=== PATIENT | male | born 1955 | race Caucasian/White ===

== ENCOUNTER 2025-08-14 08:21 | Day surgery (SDC) | payer MEDICARE, SELFPAY ==
[2025-08-14] VITALS (11 sets, daily range): BP systolic 123–152; BP diastolic 69–81; PULSE 71–86; RESP 16–20; TEMP 36.1–36.6; O2SAT 93–100; BMI 26.5
--- NOTE | 2025-08-14 07:33 | HP.PCM_ITS ---
History and Physical Date of Admission: 08/14/25 Date of Service: 07/18/25 MR#: [id number] Acct: [id number] Name: RICCI REICH Rep #: [id number] : 1955 Provider: Dr. Avani Dangelo MD Age/Sex: 70/M Location: [facility] Status: Signed Intake Vital Signs 07/18/2509:05 Height 5 ft 10 in Weight: 185 lb 8 oz BMI 26.6 BP 137/88 H Blood Pressure Location Rt brachial Position Sitting Respiration 17 Pulse 79 Pulse Source Monitor Temp 97.2 F L Temp Source Temporal Pulse Oximetry (%) 99 Oxygen Delivery Method room air Intake Visit Reasons: INGUINAl HERNIA Chief Complaint: right inguinal hernia Accompanied by: Is patient in pain?: No Allergies No Known Allergies Allergy (Unverified 07/18/25 09:06) Medications Medication Instructions Recorded Confirmed Type ascorbate calcium (vitamin C) 500 500 mg PO QDAY 07/18/25 07/18/25 History mg tablet latanoprost 0.005 % eye drops 1 drp ophthalmic (eye) QDAY 07/18/25 History pediatric multivitamin no.19-folic tab PO 07/18/25 07/18/25 History acid 200 mcg chewable tablet (Flintstones Multi-Vitamins Gummies) Have you fallen in the past year?: No PFSH Medical History (Updated 07/18/25 @ 09:05 by Berta Philippe LPN) Right inguinal hernia Surgical History (Updated 07/18/25 @ 09:05 by Berta Philippe LPN) H/O hand surgery H/O cataract extraction Social History (Updated 07/18/25 @ 09:05 by Berta Philippe LPN) Smoking Status: Never smoker alcohol intake: current substance use type: does not use HPI HPI HPI: 70-year-old male presents with his due to right inguinal hernia. Patient states he noticed this in mid April. Patient does notice a bulge does reduce but comes right back out. Patient does have small amount of discomfort with this and is very interested in having it repaired prior to flu season. ROS General General: No weight change, appetite, fatigue, colon cancer, breast cancer or weakness HEENT HEENT: Yes eye surgery; No difficulty swallowing, eye injury, swollen glands or hoarseness Additional Details: bilateral cataracts Endo Endocrine: No thyroid disease, diabetes mellitus, thyroid cancer, Hair loss, heat intolerance or cold intolerance Skin Skin: No rash or changing moles Musc Musculoskeletal: No back problems, arthritis, rheumatoid arthritis, gout or joint pain Cardio Cardiovascular: No murmur, pacemaker, heart disease, atrial fibrillation, high blood pressure, heart attack, heart stent, palpitations, shortness of breath with exertion or chest pain Psych Psychiatric: No depression, anxiety or hearing voices Resp Respiratory: No shortness of breath, No sleep apnea, No cough, No COPD, No asthma, No emphysema and No wheezing Gastro Gastrointestinal: No abdominal pain, No nausea or vomiting, No diarrhea, No constipation, No blood in stool, No acid reflux, No hemorrhoids, No ulcers, No gallbladder problem and No black,tarry stools Serjio Hematologic: No blood thinners, No blood disorders, No bleeding, No anemia and No blood clots Neuro Neurologic: No numbness, No tingling and No weakness Exam Const General: cooperative, healthy appearing, comfortable and no acute distress [facility] Head: normocephalic and atraumatic Neck Neck: supple Resp Effort & Inspection: normal respiratory effort Cardio Rate: regular rate GI Inspection: non-distended Palpation: soft, hernia (Right inguinal likely direct-reducible) and nontender Skin General: no rashes or lesions noted Neuro General: CN's II-XI intact bilaterally Extrem General: normal to inspection Psych Mental Status: mental status grossly normal Attitude: cooperative Assessment and Plan Assessment and Plan (1) Right inguinal hernia: Status: Acute Plan Plan to do a robotic right inguinal hernia with mesh, possible bilateral. Reviewed the procedure with the patient including the risks, including but not limited to infection, bleeding, paresthesia, chronic pain, injury to small bowel or contents of the spermatic cord, and recurrence. All questions were answered. Avani Dangelo M.D. Pager: [phone] [facility] [address] [place] [address], [address] [place] [id number] Office: [phone] Coding Level of Care Code Off vis,new,level 3 Diagnoses Right inguinal hernia K40.90 Clinical Quality Measures Falls Risk Screening/Assistive Devices Have you fallen in the past year?: No 07/18/25918 <Electronically signed by Avani Dangelo MD> Date Avani Dangelo MD
--- NOTE | 2025-08-14 08:42 | EKG12_ITS ---
Test Reason : PREOP Blood Pressure : */* mmHG Vent. Rate : 85 BPM Atrial Rate : 85 BPM P-R Int : 180 ms QRS Dur : 82 ms QT Int : 388 ms P-R-T Axes : 71 -57 43 degrees QTcB Int : 461 ms Normal sinus rhythm Left axis deviation Abnormal ECG No previous ECGs available Confirmed by CAROL DONAHUE, ARNAV ([id number]), loan expeditor ANGELINE GARCIA ([id number]) on 08/18/2025 9:45:18 AM Referred By: Avani Dangelo Confirmed By: ARNAV MEDINA MD
[2025-08-14] MEDS: Lactated Ringers 1,000 ML 15 ML IV (09:31)
--- NOTE | 2025-08-14 09:46 | PRE.ANES_ITS ---
ASA Classification* ASA Classification ASA Classification: 2 Assessment & Plan Anesthesia* Anesthesia Assessment Anesthesia Assessment: Discussed sedation and/or anesthesia options, risks, benefits, and alternatives with patient/parents/legal guardian/POA. Questions invited. The patient/parents/legal guardian/POA seems to understand and agrees to proceed with anesthesia plan. Reviewed the physical assessment, medical history, allergy history and patient home medications list prior to surgery/procedure/anesthetic and documented any changes. Performed airway and anesthesia risk assessments. Anesthesia Type Anesthesia Type: General History Source History Obtained from:: Patient and Chart Anesthesia Focused Assessment* Temperature: 97.8 F Pulse Rate: 84 Blood Pressure: 152/76 Respiratory Rate: 18 Pulse Ox: 100 Oxygen Delivery Method: Room Air Airway Assessment Mouth opens: >3 cm Mallampati Score: I Teeth Condition: Missing (Patient is missing several teeth. Rest are tight.) Neck Range of motion (ROM): Full ROM Labs Anesthesia Preop lab: CBC CHEMISTRY COAG Pre-Assessment Diagnosis/Proposed Procedure Planned Operative Procedure(s): LAP ROBOTIC RIH WITH MESH POSS BILAT Anesthesia History Anesthesia History - medical records technician: Anesthesia History - medical records technician Hx Hospitalization No 08/04/25 13:04 Any Problems With Anesthesia No 08/04/25 13:04 Cholinesterase deficiency No 08/04/25 13:04 You/Your Family Experience No 08/04/25 13:04 fever (hyperthermia) with Relationship Recent Exposure to Contagious No 08/14/25 09:28 Disease Does patient have nerve No 08/04/25 13:04 stimulator Patient instructed to have device shut off --Does patient have Pacemaker No 08/14/25 09:28 or ICD? When Was Last Pacemaker Check QUESTION #4 FULL TEXT: You/Your Family Experience fever (hyperthermia) with Anesthesia Last Oral Intake Last Oral intake: Last Oral Intake NPO since 18:00 08/14/25 09:28 Meds taken in AM with sips of No 08/14/25 09:28 water? Meds patient instructed to take am of surgery PONV PONV - medical records technician: PONV - medical records technician Female No 08/04/25 13:04 HX of Motion Sickness No 08/04/25 13:04 HX of N/V After Surgery No 08/04/25 13:04 Non-Smoker Yes 08/04/25 13:04 Duration of Surgery greater Yes 08/04/25 13:04 than 60 minutes Number of Risk Factors 2 08/04/25 13:04 PONV Score Moderate Risk 08/04/25 13:04 Height & Weight Height & Weight: Anesthesia: Height & Weight Height 5 ft 10 in 08/14/25 09:28 Weight: 84 kg 08/14/25 09:28 Body Mass Index (BMI) 26.5 08/14/25 09:28 Respiratory Assessment Respiratory Assessment - medical records technician: Respiratory Tract Infection Hx - medical records technician Hx Respiratory Tract Infection No 08/04/25 13:04 STOP Sleep Apnea STOP Sleep Apnea - medical records technician: STOP Sleep Apnea - medical records technician Hx Hypertension No 08/04/25 13:04 Hx Sleep Apnea No 08/04/25 13:04 CPAP BIPAP Do you snore loudly (louder Yes 08/04/25 13:04 than talking or can be heard Do you often feel tired/ No 08/04/25 13:04 fatigued/ sleepy during daytime? Has anyone observed you stop No 08/04/25 13:04 breathing during sleep? STOP Results Negative 08/04/25 13:04 QUESTION #5 FULL TEXT : Do you snore loudly (louder than talking or can be heard through closed doors)? 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 Specify any problems Hx of Preganancy in last 3 N/A 08/04/25 13:04 Months Nurse Filling Out Transfusion [email or web address] 08/04/25 13:04 & Questions: Date: 08/04/25 08/04/25 13:04 Time: 13:05 08/04/25 13:04 Patient unable to answer at this time (ie. confused, unrespo /Reproduction History /Reproductive History - medical records technician: /Reproductive Hx- medical records technician Hx Now No 08/04/25 13:04 Gestational Age (in weeks): EDC: Hx Hx Para Hx Section SAB No 08/04/25 13:04 Does the father of the baby or his family experience fever w Father of the baby Malignant Hypertension history comment Active Medications Active Medications: Current Medications Generic Name Dose Route Start Last Admin Trade Name Freq PRN Reason Stop Dose Admin Lactated Ringer's 1,000 mls @ 15 mls/hr 08/14/25 09:00 08/14/25 09:31 IV 15 mls/hr .Q48H MARY Administration PFSH Medical History Wears hearing aid Wears glasses Restless legs Shortness of breath on exertion Non-smoker History of edema Right inguinal hernia Home Medications Medication Instructions Recorded Last Taken Type ascorbate calcium (vitamin C) 500 500 mg PO QDAY 07/18 Unknown History mg tablet latanoprost 0.005 % eye drops 1 drp ophthalmic (eye) Q DAY 07/18/25 Unknown History pediatric multivitamin no.19-folic 1 tab PO DAILY 07/02 04/25 Unknown History acid 200 mcg chewable tablet (Flintstones Multi-Vitamins Gummies) Allergy/AdvReac Type Severity Reaction Status Date / Time No Known Allergies Allergy Verified 08/14/25 09:28 Surgical History Hx of colonoscopy H/O hand surgery H/O cataract extraction Social History Smoking Status: Never smoker alcohol intake: current substance use type: does not use Review of Systems (Anesthesia) ROS Narrative System reviewed and no additional complaints, except as documented.
[2025-08-14] MEDS: Lactated Ringers 1,000 ML 1000 ML IV (11:42)
[2025-08-14] MEDS: Cefazolin 1 GM/5 ML Vial 2 GM IV (11:43)
[2025-08-14] MEDS: Lidocaine 1% (5 ml sdv) 5 ML Vial IV (11:47)
--- NOTE | 2025-08-14 12:42 | PCM.OPRPT ---
Operative Report (Standard) Operative Information Date of Procedure: 08/14/25 Pre-Operative Diagnosis: Right direct inguinal hernia Post-Operative Diagnosis: Right indirect and direct inguinal hernia Surgery/Procedure Performed: Robotic inguinal hernia repair with mesh section forest fire warden: Yes Environmental Control Administrator: Bridgette Wilson Tasks completed by assistant to the president: Opening & closing Type of Anesthesia: General/Supplemental RN Documented Start/Stop Times: Operation Date: 08/14/25 10:15 Case Time Into Pre-Op 08/14/25 08:45 Anesthesia Start 08/14/25 11:42 Into Room 08/14/25 11:42 Procedure Start 08/14/25 12:01 Procedure End 08/14/25 12:51 Anesthesia End 08/14/25 12:56 Out of Room 08/14/25 12:56 Into Recovery 08/14/25 12:58 Procedure Start Time: 12:01 Procedure Stop Time: 12:51 Select all DRAINS/GRAFTS/IMPLANTS that apply: Prosthetic device Prosthetic device details: Appropriate mesh Lot [id number] Special Medications: Ancef 2 g IV x 1 Estimated Blood Loss: <10 cc Specimen collected: No Description of surgery: Indications: 70-year-old male presented with right inguinal hernia which was symptomatic. Robotic right inguinal hernia repair with mesh was elected patient was agreeable. Description of procedure: Patient was brought to operating room placed supine operative table. Timeout was completed verifying correct patient, procedure, site, positioning, special, prior to beginning procedure. General anesthesia was induced. Patient's arms were tucked and padded appropriately. Visiport was used to make the incision at Santana's point in the left upper quadrant. Entry into the abdomen was confirmed visually. Laparoscope was placed. Verifying no injury during initial trocar placement. Patient was placed in Trendelenburg position. Two 8 mm trochars were placed along the horizontal line in the midline and in the right upper quadrant. The initial 5 mm trocar was upsized to an 8 mm well under direct visualization. Both the inguinal regions were inspected and right indirect and direct, left no hernia. Robot was docked. The median umbilical ligament was divided sharply with electrocautery. Peritoneum was incised with the endoscopic scissors along a line 2 cm above the superior edge of the hernia defect extending from the median umbilical ligament to anterior superior iliac spine. Peritoneal flap was mobilized inferiorly using blunt and sharp dissection. The left direct and indirect hernia sac was inverted and dissected. Cord structures were visualized and protected. The inferior epigastric vessels were exposed and symphysis pubis and identified. A ProGrip mesh was used. The mesh was rolled longitudinally into a compact cylinder and passed through the trocar. The cylinder was placed along the inferior aspect of the working space and unrolled into place to completely cover the direct, indirect and femoral spaces. The peritoneal flap was closed over mesh and secured with 3-0 V-Loc suture. After ensuring adequate hemostasis, the trochars were removed and pneumoperitoneum allowed to escape. Robot was undocked. the skin was closed with 4-0 Monocryl interrupted sutures and Steri-Strips. Patient's testicles are also confirmed in the scrotum bilaterally. Patient tolerated procedure well was taken to the postanesthesia care unit in stable condition. Surgical Findings: See operative report Complications Complications: No
--- NOTE | 2025-08-14 12:46 | EX.PCM.DISCH ---
Discharge Instructions Procedure Hernia Diet Discharge Diet: Light diet - advance as tolerated Activity Discharge Activity: Return to Normal Activity, May Not Drive (for 2-3 days or while taking narcotic pain meds.) and May Shower (with the bandage in place 1-2 days after surgery.) Lifting Restrictions: 20 pounds for 8 weeks. Additional Activity Instructions:: Climbing stairs is fine, walking is encouraged. Sitting in bed may be uncomfortable. Sitting up using your lateral muscles (sitting up sideways) is usually more comfortable. Do not drive, work heavy equipment of sign legal documents for 24 hours. You may have scrotal swelling, an ice pack and/or athletic support can provide more comfort. Pain medications may cause nausea, you should typically eat light foods as you take your pain medications. Pain medications may also cause constipation. If you have difficulty with this, discuss with your doctor. Dressing / Incision Call your doctor if your incision/area has: Continuous Slow Oozing, Sudden Increased Bleeding, Increased Pain/ Swelling, Increased Redness and Foul Smelling Discharge Call your doctor if you observe: Fever of 101 or Higher Suture Line Care: Avoid Pulling/Pushing and Avoid Pinching/Bending Change Dressing in: 3 days (Leave steri-strips in place for 7 to 10 days if they do not fall off okay to remove in 10 days. May protect with a gauze bandaid.) Additional Dressing/Incision Instructions:: Leave the operative bandage on for 2 days. When you remove the bandage, leave the steri-strips on place until 10 days from surgery or they fall off. Follow Up Care Please Follow Up With: Avani Dangelo MD When: Please call [phone] for a follow up appointment in 2 weeks, after 4:30 PM/weekend call [phone] with any concerns Test Results: Test results from this visit will be discussed in further detail at your follow-up appointment, if applicable. Discharge Plan Admission Attending Provider: Avani Dangelo Primary Care Provider: Ludy Macario Instructions Print Language: Ukrainian Discharge Orders/Prescriptions Prescriptions: New tramadol 50 mg tablet 50 mg PO Q6H PRN (Reason: pain) Qty: 5 0RF Continued latanoprost 0.005 % drops 1 drp ophthalmic (eye) QDAY ascorbate calcium (vitamin C) 500 mg tablet 500 mg PO QDAY Flintstones Multi-Vit Gummies 200 mcg tablet,chewable 1 tab PO DAILY Referrals / Follow Up: Ludy Macario, STAGE SETTING PAINTER APPRENTICE-C [Primary Care Provider, Family Practice] Disposition Disposition (needs filled in before D/C Order can be placed): Home, Self Care
[2025-08-14] MEDS: Ketorolac 30 MG/ML Syringe 105 MG IV (12:52)
[2025-08-14] MEDS: fentaNYL 100 MCG/2 ML Ampul 200 MCG IV (12:54)
--- NOTE | 2025-08-14 13:01 | PCM.POST.ANE ---
Anesthesia: Postop Eval I Current Vital Signs Temperature: 97.9 F Pulse Rate: 81 Blood Pressure: 132/81 Respiratory Rate: 20 Pulse Ox: 95 Oxygen Delivery Method: Room Air Assessment Airway patent: Yes Spontaneous unlabored respirations: Yes Mental status: Awake and Calm nausea: No Vomiting: No Anesthesia Complication: No Fluid Hydration Crystalloid volume administer (ml): 900 Total IV fluid infused: 900 Progress Note Anesthesia document: Postop Eval 1 completed: Yes
--- NOTE | 2025-08-14 14:33 | POSTOPAN2_ITS ---
Anesthesia Postop Eval I Sum Postop Eval Completion status Anesthesia document: Postop Eval 1 completed: Yes Anesthesia Postop Eval I Summary Anesthesia Postop Eval I Summary: Anesthesia Postop Eval I: Assessment Summary Airway patent Yes 08/14/25 13:02 MELT HOUSE [email or web address] Spontaneous unlabored Yes 08/14/25 13:02 MELT HOUSE [email or web address] respirations Mental status Awake,Calm 08/14/25 13:02 MELT HOUSE [email or web address] nausea No 08/14/25 13:02 MELT HOUSE [email or web address] Vomiting No 08/14/25 13:02 MELT HOUSE [email or web address] Anesthesia Postop Eval I: Fluid Summary Crystalloid volume administer 900 08/14/25 13:02 MELT HOUSE [email or web address] (ml) Colloids volume administered ( ml) Blood Product volume administered (ml) Total IV fluid infused 900 08/14/25 13:02 MELT HOUSE [email or web address] Anesthesia Postop Eval I: Summary Notes Anesthesia Complication No 08/14/25 13:02 MELT HOUSE [email or web address] Anesthesia Complication Comment: Post-operative progress note Anesthesia: Postop Eval II Evaluation Mental status: Awake and Calm Pain Level: 0 nausea: No Vomiting: No Complications Anesthesia Complication: No
--- NOTE | 2025-08-14 14:33 | PCM.POSTANE2 ---
Anesthesia Postop Eval I Sum Postop Eval Completion status Anesthesia document: Postop Eval 1 completed: Yes Anesthesia Postop Eval I Summary Anesthesia Postop Eval I Summary: Anesthesia Postop Eval I: Assessment Summary Airway patent Yes 08/14/25 13:02 [email or web address] Spontaneous unlabored Yes 08/14/25 13:02 [email or web address] respirations Mental status Awake,Calm 08/14/25 13:02 [email or web address] nausea No 08/14/25 13:02 [email or web address] [email or web address] Vomiting No 08/14/25 13:02 [email or web address] Anesthesia Postop Eval I: Fluid Summary Crystalloid volume administer 900 08/14/25 13:02 [email or web address] (ml) Colloids volume administered ( ml) Blood Product volume administered (ml) Total IV fluid infused 900 08/14/25 13:02 [email or web address] Anesthesia Postop Eval I: Summary Notes Anesthesia Complication No 08/14/25 13:02 [email or web address] Anesthesia Complication Comment: Post-operative progress note Anesthesia: Postop Eval II Evaluation Mental status: Awake and Calm Pain Level: 0 nausea: No Vomiting: No Complications Anesthesia Complication: No
== END 2025-08-14 15:36 | disposition home or self-care (01) ==
LOC: SDC 08:25 → AC 08:28
PROVIDERS: PCP Nurse Practitioner Family; Referring Provider Surgery; Visit Provider Surgery
DX: K40.90 Unilateral inguinal hernia, without obstruction or gangrene, not specified as recurrent (principal)
CPT/HCPCS: 49650; S2900; 00840; 93005; C1781; J2405